=== PATIENT | female | born 1985 | race African-American/Black ===

== ENCOUNTER 2016-08-31 13:34 | Emergency (ER) | payer SELFPAY ==
[~2016-08-31] VITALS: Ht 160 cm; Wt 81.0 kg
[~2016-08-31 13:34] MED LIST: ALBU8I INH; DEPO400I IM; IBUP800T23 PO
[2016-08-31 13:36] VITALS: BP 119/80; PULSE 74; RESP 16; TEMP 97.4; O2SAT 96
[2016-08-31] MEDS ORDERED: IBUP800T23 PO (14:11)
[2016-08-31] MEDS ORDERED: BACT800T5 PO (14:11)
[2016-08-31] MEDS ORDERED: CEPH-460 PO (14:11)
--- NOTE | 2016-08-31 14:12 | PD ---
HPI Chief Complaint: Skin Problem Time Seen by Provider: 14:10 Travel History International Travel<30 days: No Contact w/Intl Traveler<30days: No Traveled to known affect area: No History of Present Illness HPI 31-year-old female presents to the emergency department complaint of a painful ingrown toenail to her left great toe for the last 2-3 days. Has tried cutting the toenail with no relief of symptoms. Reports seeing some drainage from the area. Denies fever, chills, nausea, vomiting. Has not taken any medications to alleviate her symptoms. Allergies trazodone. No other modifying factors or associated signs and symptoms. PFSH Past Medical History Asthma: Yes Anxiety: Yes Diabetes: Yes (TYPE II) Diminished Hearing: No Neurologic: No Respiratory: Yes (ASTHMA) Immunizations Current: No ?: Not : 0 Para: 0 Past Surgical History Abdominal Surgery: No Ear Surgery: No Endocrine Surgery: No Eye Surgery: No Gynecologic Surgery: No Other Surgery: No Social History Alcohol Use: No Tobacco Use: Yes (1 PACK PER WEEK) Substance Use: Yes (HX OF CRACK ABUSE) Allergies-Medications (Allergen,Severity, Reaction): Coded Allergies: Trazodone (Verified Allergy, Severe, Swelling, 08/31/16) Uncoded Allergies: trazadone (Allergy, Severe, 01/28/14) facial swelling Reported Meds & Prescriptions Reported Meds & Active Scripts Active Ibuprofen 800 Mg Tab 800 Mg PO Q6HR PRN Bactrim DS (Sulfamethoxazole-Trimethoprim) 800-160 Mg Tab 1 Tab PO BID 10 Days Keflex (Cephalexin) 500 Mg Cap 500 Mg PO Q6H 10 Days Reported Ibuprofen 800 Mg Tab 800 Mg PO HS PRN Review of Systems Except as stated in HPI: all other systems reviewed are Neg Physical Exam Narrative GENERAL: Well-nourished, well-developed female patient, in no acute distress; afebrile, nontoxic-appearing SKIN: Warm and dry. Medial aspect of right great toenail with mild erythema and edema and with tenderness to touch; there is no fluctuance to the area. Toe with full range of motion, sensory intact, less than 2 second cap refill. HEAD: Atraumatic. Normocephalic. EYES: Pupils equal and round. No scleral icterus. No injection or drainage. ENT: Mucosa pink and moist. Airway patent. NECK: Trachea midline. CARDIOVASCULAR: Regular rate. RESPIRATORY: No accessory muscle use. GASTROINTESTINAL: Rounded. MUSCULOSKELETAL: No obvious deformities. No clubbing. No cyanosis. No edema. NEUROLOGICAL: Awake and alert. Oriented 3. No obvious cranial nerve deficits. Motor grossly within normal limits. Normal speech. PSYCHIATRIC: Appropriate mood and affect; insight and judgment normal. Data Data Last Documented VS Vital Signs Date Time Temp Pulse Resp B/P Pulse Ox O2 Delivery O2 Flow Rate FiO2 08/31/16 13:36 97.4 74 16 119/80 96 Room Air Orders Ibuprofen (Motrin) (08/31/16 14:15) [facility] Medical Decision Making Medical Screen Exam Complete: Yes Emergency Medical Condition: Yes Medical Record Reviewed: Yes Differential Diagnosis Infected ingrown toenail, paronychia, cellulitis Narrative Course 31-year-old female with an infected ingrown toenail to the great toe of the right foot. There is no area of fluctuance to be drained. Patient is afebrile and nontoxic-appearing. She denies fever, chills, nausea, vomiting. Ibuprofen administered in the ER. Bactrim, Keflex, ibuprofen prescriptions for home. Instructed patient to follow up with podiatry. Patient verbalizes understanding and agreement with treatment plan. Patient is medically cleared and stable for discharge. Discussed reasons to return to the emergency department. Instructed patient to follow up with primary care provider. Patient agrees with treatment plan. The patients vital signs are stable and the patient is stable for outpatient follow-up and treatment. Patient discharged home, stable and in no acute distress. Diagnosis Primary Impression: Ingrowing toenail with infection Referrals: [employer] Primary Care Physician Patient Instructions: General Instructions, Ingrown Nail (ED) Departure Forms: Tests/Procedures, Work Release Enter return to work date: Sep 01, 2016 Additional Instructions: Warm, Epson salt soaks to the affected toe Ibuprofen or Tylenol instructed for pain and inflammation Follow-up with podiatry Follow-up with primary care provider Return to the emergency department immediately with worsening of symptoms Med/Other Pt SpecificInfo: Prescription(s) given Scripts Ibuprofen 800 Mg [id number] Mg PO Q6HR PRN (PAIN) #30 TAB Ref 0 Prov:Sade Chavez 08/31/16 Sulfamethoxazole-Trimethoprim (Bactrim DS)800-160 Mg Tab1 Tab PO BID 10 Days Ref 0 Prov:Sade Chavez 08/31/16 Cephalexin (Keflex)500 Mg [id number] Mg PO Q6H 10 Days Ref 0 Prov:Sade Chavez 08/31/16 Disposition: 01 DISCHARGE HOME Condition: Stable Sade Chavez Aug 31, 2016 14:12
[2016-08-31] MEDS ORDERED: IBUPROFEN 800 MG TAB PO ONE (14:15)
== END 2016-08-31 15:16 | disposition home or self-care (01) ==
LOC: NEPB 13:34
DX: L60.0 Ingrowing nail (principal); L08.9 Local infection of the skin and subcutaneous tissue, unspecified; E11.9 Type 2 diabetes mellitus without complications; F17.210 Nicotine dependence, cigarettes, uncomplicated
CPT/HCPCS: 99282

== ENCOUNTER 2017-01-08 10:56 | Emergency (ER) | payer SELFPAY ==
[~2017-01-08] VITALS: Ht 160 cm; Wt 85.0 kg
[~2017-01-08 10:56] MED LIST changes: -ALBU8I INH; +BACT800T5 PO; +CEPH-460 PO; -DEPO400I IM
[2017-01-08 11:00] VITALS: BP 130/80; PULSE 94; RESP 28; TEMP 98.1; O2SAT 100
[2017-01-08] MEDS ORDERED: methylPREDNISolone SOD SUCC 125 MG/2 ML VIAL IV PUSH ONE (11:15)
[2017-01-08] MEDS ORDERED: SODIUM CHLORIDE 0.9% FLUSH 10 ML FLUSH IVF PRN (11:15)
[2017-01-08] MEDS ORDERED: RESP: ALBUTEROL 2.5 MG/3 ML NEB (SCH) INH (11:15)
[2017-01-08] MEDS ORDERED: DEXAMETHASONE SOD PHOS 4 MG/ML VIAL IM ONE (11:15)
[2017-01-08 11:19] VITALS: O2SAT 94
--- NOTE | 2017-01-08 11:41 | PD ---
HPI Chief Complaint: Respiratory Symptoms Time Seen by Provider: 11:38 Travel History International Travel<30 days: No Contact w/Intl Traveler<30days: No Traveled to known affect area: No History of Present Illness HPI 31-year-old female that presents to the ED for evaluation of asthma. Patient has a chronic history of asthma states that for the past 2 today she's been having an exacerbation. Per patient she ran out of her inhaler recently. Per patient he feels similar to her asthma except she hasn't had it this bad in years. Per patient for the most part has been under control. She states that she believes that she didn't sick or something else is going on that is causing her severe symptoms. She denies any injuries. No recent travel. No blood thinner use. She denies any fevers chills or sweats. No cough or runny nose. On exam patient does appear to be in mild distress. She states that she feels that she has pressure in her chest which is normal for her asthma. She denies any abdominal pain. No nausea or vomiting. No bowel movement or urinary issues. PFSH Past Medical History Asthma: Yes Anxiety: Yes Diabetes: Yes (TYPE II) Patient Takes Glucophage: No Diminished Hearing: No Neurologic: No Respiratory: Yes (ASTHMA) Immunizations Current: No ?: Not LMP: UNKNOWN : 0 Para: 0 Past Surgical History Surgical History: No Previous Surgery Abdominal Surgery: No Ear Surgery: No Endocrine Surgery: No Eye Surgery: No Gynecologic Surgery: No Other Surgery: No Social History Alcohol Use: No Tobacco Use: No (QUIT) Substance Use: Yes (HX OF CRACK ABUSE) Allergies-Medications (Allergen,Severity, Reaction): Coded Allergies: Trazodone (Verified Allergy, Severe, Swelling, 01/08/17) Uncoded Allergies: trazadone (Allergy, Severe, 01/28/14) facial swelling Reported Meds & Prescriptions Reported Meds & Active Scripts Active Proair Hfa 8.5 GM Inh (Albuterol Sulfate) 90 Mcg/Act Aer 2 Puff INH Q4-6H PRN 108 mcg/actuation Azithromycin 250 Mg Tab 250 Mg PO DIRECTED Take 2 tabs (500 mg) on day 1 then 1 tab daily x 4 days. Prednisone 20 Mg Tab 20 Mg PO BID Review of Systems Except as stated in HPI: all other systems reviewed are Neg Physical Exam Narrative GENERAL: Well-nourished, well-developed patient in no apparent distress. SKIN: Warm and dry. HEAD: Atraumatic. Normocephalic. EYES: Pupils equal and round reactive to light and accommodation. No scleral icterus. No injection or drainage. ENT: No nasal bleeding or discharge. Mucous membranes pink and moist. TMs are clear with no sign of infection or perforation. No mastoid tenderness. Ear canals are intact bilaterally. No lymphadenopathy. Nostril mucosa is red and moist with clear mucus noted. No sinus tenderness to palpation noted. Tonsils are not enlarged or swollen. No ulvua Deviation. Tongue is midline. NECK: Trachea midline. No JVD. No meningeal signs noted CARDIOVASCULAR: Regular rate and rhythm. RESPIRATORY: No accessory muscle use. Wheezings heard in all lung mack. Breath sounds equal bilaterally. GASTROINTESTINAL: Abdomen soft, non-tender, nondistended. Hepatic and splenic margins not palpable. MUSCULOSKELETAL: Extremities without clubbing, cyanosis, or edema. No obvious deformities. NEUROLOGICAL: Awake and alert. No obvious cranial nerve deficits. Motor grossly within normal limits. Five out of 5 muscle strength in the arms and legs. Normal speech. PSYCHIATRIC: Appropriate mood and affect; insight and judgment normal. Data Data Last Documented VS Vital Signs Date Time Temp Pulse Resp B/P Pulse Ox O2 Delivery O2 Flow Rate FiO2 01/08/17 11:19 28 100 Nasal Cannula 2 01/08/17 11:00 98.1 94 130/80 Orders Chest, Single Ap (01/08/17 11:12) Ecg Monitoring (01/08/17 11:12) Iv Access Insert/Monitor (01/08/17 11:12) Oximetry (01/08/17 11:12) Albuterol Neb (Albuterol Neb) (01/08/17 11:15) Sodium Chloride 0.9% Flush (Ns Flush) (01/08/17 11:15) Dexamethasone Inj (Decadron Inj) (01/08/17 11:15) Methylprednisolone So Succ Inj (Solumedr (01/08/17 11:15) Albuterol Neb (Albuterol Neb) (01/08/17 11:30) MDM Medical Decision Making Medical Screen Exam Complete: Yes Emergency Medical Condition: Yes Medical Record Reviewed: Yes Interpretation(s) CXR shows no sign of acute disease Differential Diagnosis Asthma exacerbation versus asthma versus COPD versus pneumonia versus bronchitis Narrative Course 31-year-old female that presents to the ED for evaluation of possible asthma exacerbation. Patient was properly examined and was found to have signs and symptoms consistent appears to be asthma exacerbation. Chest x-ray and meds were given. Chest x-ray showed no sign of acute disease. Patient felt improved after medications given. Patient was given a prescription for albuterol, prednisone, azithromycin. Told to follow up with PCP. See ED for worsening symptoms. Diagnosis Primary Impression: Asthma Qualified Code: J45.21 - Mild intermittent asthma with acute exacerbation Patient Instructions: General Instructions Additional Instructions: Motrin and Tylenol for pain and fever. You can use [id number] antihistamine as well as well as Mucinex as needed for runny nose and congestion. Cough drops for cough as needed. Drink plenty of fluids. Follow-up with PCP. See ED for worsening symptoms. Med/Other Pt SpecificInfo: Prescription(s) given Scripts Albuterol 8.5 GM Inh (Proair Hfa 8.5 GM Inh)90 Mcg/Act Aer2 Puff INH Q4-6H PRN ( SHORTNESS OF BREATH) #1 INHALER 108 mcg/actuation Prov:Frieda Lewis MD 01/08/17 Azithromycin 250 Mg [id number] Mg PO DIRECTED #6 TAB Take 2 tabs (500 mg) on day 1 then 1 tab daily x 4 days. Prov:Frieda Lewis MD 01/08/17 Prednisone 20 Mg Tab20 Mg PO BID #10 TAB Prov:Frieda Lewis MD 01/08/17 Disposition: 01 DISCHARGE HOME Condition: Stable Enoch Mcknight Jan 08, 2017 11:41
[2017-01-08] MEDS: RESP: ALBUTEROL 2.5 MG/3 ML NEB (SCH) INH ×2 (11:42→11:43)
[2017-01-08] MEDS ORDERED: PRED20 PO (11:48)
[2017-01-08] MEDS ORDERED: ALBUAER3 INH (11:48)
[2017-01-08] MEDS ORDERED: AZIT250T3 PO (11:48)
--- NOTE | 2017-01-08 11:51 | RADRPT ---
EXAM DATE/TIME: 01/08/2017 11:34 [place] COMPARISON: No previous studies available for comparison. INDICATIONS : Short of breath, chest pressure MEDICAL HISTORY : asthma SURGICAL HISTORY : None. ENCOUNTER: Initial ACUITY: 1 day PAIN SCORE: 0/10 LOCATION: Bilateral chest FINDINGS: A single view of the chest demonstrates the lungs to be symmetrically aerated without evidence of mas s, infiltrate or effusion. The cardiomediastinal contours are unremarkable. Osseous structures are intact. CONCLUSION: Normal examination. Manohar Sharp Jr., MD on January 08, 2017 at 11:48 Board Certified Radiologist. This report was verified electronically.
== END 2017-01-08 13:22 | disposition home or self-care (01) ==
LOC: NEPD 10:56
DX: J45.909 Unspecified asthma, uncomplicated (principal); F41.9 Anxiety disorder, unspecified; E11.9 Type 2 diabetes mellitus without complications; Z79.899 Other long term (current) drug therapy; Z88.5 Allergy status to narcotic agent; Z87.891 Personal history of nicotine dependence
CPT/HCPCS: 71010; 94640; 94664; 96374; 99284; J2930; J7613